=== PATIENT | male | born 1940 | race Caucasian/White ===

== ENCOUNTER 2024-11-01 22:12 | Emergency (ER) | payer OTHER ==
[~2024-11-01] VITALS: Ht 180.3 cm; Wt 72.6 kg
[2024-11-01 22:12] VITALS: RESP 16; TEMP 98.4
[~2024-11-01 22:12] MED LIST: AMLODIPINE BESY10 MG PO; ATORVASTATIN CA20 MG PO; ECOTRIN325 MG PO; METOPROLOL TAR100 MG PO; PLAVIX75 MG PO; VASOTEC5 MG PO
[2024-11-01] MEDS ORDERED: SODIUM CHLORIDE FLUSH 10 ML SYR IV PRN (22:30)
[2024-11-01 22:53] LABS: BASOPHILS # (AUTO) 0.1 (0.0-0.1); BASOPHILS % 0.9 % (0.0-1.0); EOSINOPHILS # (AUTO) 0.4 (0.0-0.4); EOSINOPHILS % 6.4 % (0.0-6.0); HEMATOCRIT 35.6 % (38.2-49.6); HEMOGLOBIN 12.5 g/dL (14.0-18.0); LYMPHOCYTES # (AUTO) 1.5 (1.0-3.2); LYMPHOCYTES % 28.2 % (18.0-39.1); MEAN CORPUSCULAR HEMOGLOBIN 31.1 pg (28-32); MEAN CORPUSCULAR HGB CONC 35.1 g/dL (31-35); MEAN CORPUSCULAR VOLUME 88.6 fL (81-99); MONOCYTES # (AUTO) 0.6 (0.2-0.8); MONOCYTES % 11.3 % (4.4-11.3); NEUTROPHILS # (AUTO) 2.9 (2.1-6.9); NEUTROPHILS % 52.3 % (38.7-80.0); PLATELET COUNT 156 x10e3/uL (140-360); RED BLOOD COUNT 4.02 x10e6/uL (4.3-5.7); RED CELL DISTRIBUTION WIDTH 12.3 % (11.7-14.4); WHITE BLOOD COUNT 5.47 x10e3/uL (4.8-10.8)
[2024-11-01 23:05] LABS: ALBUMIN/GLOBULIN RATIO 1.5 (0.8-2.0); ANION GAP 13.9 mmol/L (8-16); BILIRUBIN,TOTAL 0.6 mg/dL (0.2-1.2); CALCIUM 8.8 mg/dL (8.4-10.2); CREATININE, SERUM 1.42 mg/dL (0.72-1.25); POTASSIUM 3.9 mmol/L (3.5-5.1); TOTAL PROTEIN 6.7 g/dL (6.5-8.1)
[2024-11-01 23:11] LABS: TROPONIN I 0.014 ng/mL (0-0.300)
[2024-11-02] MEDS: SODIUM CHLORIDE 0.9% 1000ML 1,000 ML IV ONE (01:08)
[2024-11-02 02:00] VITALS: PULSE 80
[2024-11-02 02:51] VITALS: BP 161/76; O2SAT 100
[2024-11-02] MEDS ORDERED: IOPAMIDOL 370 MG/ML 100 ML INFUS..BTL INJ ONE (06:15)
== END 2024-11-02 02:25 | disposition home or self-care (01) ==
LOC: ER 22:16
DX: R61 Generalized hyperhidrosis (principal); M54.6 Pain in thoracic spine; I10 Essential (primary) hypertension; E11.65 Type 2 diabetes mellitus with hyperglycemia; E78.5 Hyperlipidemia, unspecified; I25.10 Atherosclerotic heart disease of native coronary artery without angina pectoris; I25.2 Old myocardial infarction; Z95.5 Presence of coronary angioplasty implant and graft
CPT/HCPCS: 36415; 71275; 80053; 83690; 84484; 85025; 93005 ×2; 94760; 99284; J7030; Q9967